=== PATIENT | female | born 1990 | race Caucasian/White ===

== ENCOUNTER 2017-07-26 18:03 | Inpatient (IN) ==
--- NOTE | 2017-07-26 21:31 | Emergency Department Note ---
Disposition Clinical Impression: Abdominal wall cellulitis Disposition: Admitted As Inpatient Condition: Good Referrals: Karen Perales, [employer] [Primary Care Provider] - Forms: ED Satisfaction Letter Time of Disposition: 23:36 Skin/Abscess/FB HPI Chief complaint: ED Skin/Abscess/Foreign Body Stated complaint: post OOMP surgery reaction Time Seen by Provider: 07/26/17 21:19 Source: patient Limitations: no limitations Nursing Notes Reviewed: Yes Vital Signs Reviewed: Yes HPI Narrative: Patient presents to the ED with redness to her abdominal wall after his surgery 5 days ago. She had a left partial oophorectomy performed in [facility] at [facility]. She called her doctor 3 days ago for dysuria and was placed on Keflex. At that time she noticed some redness and swelling in her anterior abdominal wall and was told to marked the area. She states that the area has spread despite continuing to take antibiotics for her UTI. 6 is also complaining of worsening abdominal pain that sharp in nature. Nothing really seems to make it better or worse and it is different than her expected postop pain. No fever, chills, chest pain or shortness of breath. No other rashes. No drainage from her incision sites. She does continue to have dysuria Home Medications Medication Instructions Recorded Confirmed Hycosamine 1 each PO DAILY 05/23/16 01/07/17 Fexofenadine/Pseudoephedrine 1 each PO DAILY 09/15/16 01/07/17 [Tricia-D 12 Hour Tablet] Montelukast Sodium [Singulair] 4 mg PO DAILY 09/15/16 01/07/17 ALPRAZolam [Xanax 0.25 MG Tablet] 0.25 mg PO BID 02/27/17 02/27/17 Previous Rx's Medication Instructions Recorded Cyclobenzaprine [Flexeril] 10 mg PO HS #3 tablet 09/15/16 Ibuprofen [Motrin] 600 mg PO Q6HR PRN #20 tab 01/07/17 Azithromycin [Azithromycin 6-Tab 250 mg PO PER PKG DI #6 tab 02/27/17 Pack] Guaifenesin/Dm/Pseudoephedrine 1 each PO BID #20 tablet 02/27/17 [Capmist Dm Tablet] predniSONE [PredniSONE] 0 mg PO DAILY #14 tablet 03/15/17 Allergies Allergy/AdvReac Type Severity Reaction Status Date / Time Penicillins AdvReac Rash Verified 02/27/17 12:13 Review of Systems: As reviewed in the HPI. All other systems reviewed are negative or normal. Past Medical History - Past Medical History Attestation: Yes The following information was validated with the patient. 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 The incisions overall to look clean, dry and intact but the erythema does cover them and is difficult to tell where it started from.). Absent: distention - Extremities Exam Extremities exam: Present: normal inspection, full ROM. Absent: tenderness, pedal edema - Back Exam Back exam: Present: other (Reports chronic back pain and "rods in there.") - Neurological Exam Neurological exam: Present: alert, oriented X3 - Psychiatric Psychiatric exam: Present: normal affect, normal mood - Skin Skin exam: Present: warm, dry, intact, normal color Course Course Narrative: Patient having a abdominal wall cellulitis after surgery. No extension into the abdomen or focal abscess. We will admit her. The hospital service. Spoke to the hospitalist, and he accepted her for admission. We had originally discussed placing her on Zosyn and vancomycin. However, she is allergic to penicillins, so we elected to place her on clindamycin and vancomycin. Especially since she is already failed outpatient therapy with a cephalosporin. Vital Signs Temperature 99.3 F 07/26/17 18:10 Pulse Rate 82 07/26/17 18:10 Respiratory Rate 18 07/26/17 18:10 Blood Pressure 136/84 07/26/17 18:10 O2 Sat by Pulse Oximetry 97 07/26/17 18:10 Temperature 99.3 F 07/26/17 18:10 Pulse Rate 82 07/26/17 18:10 Respiratory Rate 18 04/25/18 18:10 Blood Pressure 136/84 04/25/18 18:10 O2 Sat by Pulse Oximetry 97 07/26/17 18:10 Oxygen Delivery Oxygen Delivery Room Air Skin/Abscess/Foreign Body - Lab Data Result diagrams: 07/26/17 21:35 07/26/17 21:35 Lab Results 07/26/17 07/26/17 07/26/17 Range/Units 21:35 21:35 21:40 WBC 8.2 (4.3-11.1) K/mcL RBC 4.84 (3.82-4.97) M/mcL Hgb 13.5 (11.5-15.4) g/dL Hct 41.6 (35.3-44.9) % MCV 86.0 (83.0-100.0) fL MCH 27.9 L (28.0-33.3) pg MCHC 32.5 (31.6-35.5) g/dL RDW 12.7 (11.5-14.5) % Plt Count 221 (140-400) K/mcL MPV 11.7 (9.4-12.4) fL Immature Gran % 0.1 (0-4) % Seg Neutrophils % 64.9 % Lymphocytes % 26.1 % Monocytes % 7.0 % Eosinophils % 1.7 % Basophils % 0.2 % Neutrophils # 5.3 (1.6-8.9) K/mcL Lymphocytes # 2.1 (0.6-4.6) K/mcL Monocytes # 0.6 (0.0-1.3) K/mcL Eosinophils # 0.1 (0.0-0.6) K/mcL Basophils # 0.0 (0.0-0.2) K/mcL Sodium 138 (136-145) mEq/L Potassium 4.0 (3.5-5.1) mEq/L Chloride 103 (98-107) mEq/L Carbon Dioxide 31 H (23-29) mEq/L BUN 17 (6-20) mg/dL Creatinine 0.81 (0.60-1.20) mg/dL Est GFR ( Amer) > 60 (> 60) Est GFR (Non-Af Amer) > 60 (> 60) BUN/Creatinine Ratio 21 (6-26) Glucose 102 (70-105) mg/dL Calculated Osmolality 288 (280-300) Calcium 9.3 (8.6-10.3) mg/dL Urine Color Yellow (Yellow) Urine Clarity Clear (Clear) Urine pH 6.0 (5.0-8.0) pH Units Ur Specific [place] 1.024 (1.010-1.025) Urine Protein Negative (Neg-Trace) mg/dL Urine Glucose (UA) Normal (Normal) mg/dL Urine Ketones Negative (Negative) mg/dL Urine Blood Trace H (Negative) Urine Nitrite Negative (Negative) Urine Bilirubin Negative (Negative) Urine Urobilinogen Normal (Normal) mg/dL Ur Leukocyte Esterase Negative (Negative) Urine Microscopic RBC 0-3 (0-3) per hpf Urine Microscopic WBC 0-3 (0-3) per hpf Ur Squamous Epith Cells Many H (None-Few) per lpf Urine Bacteria Few (None-Few) per hpf Hyaline Casts None Seen (None-Few) per lpf Ur Culture Indicated? NO (NO) Urine Test (Negative) 07/26/17 Range/Units 21:40 WBC (4.3-11.1) K/mcL RBC (3.82-4.97) M/mcL Hgb (11.5-15.4) g/dL Hct (35.3-44.9) % MCV (83.0-100.0) fL MCH (28.0-33.3) pg MCHC (31.6-35.5) g/dL RDW (11.5-14.5) % Plt Count (140-400) K/mcL MPV (9.4-12.4) fL Immature Gran % (0-4) % Seg Neutrophils % % Lymphocytes % % Monocytes % % Eosinophils % % Basophils % % Neutrophils # (1.6-8.9) K/mcL Lymphocytes # (0.6-4.6) K/mcL Monocytes # (0.0-1.3) K/mcL Eosinophils # (0.0-0.6) K/mcL Basophils # (0.0-0.2) K/mcL Sodium (136-145) mEq/L Potassium (3.5-5.1) mEq/L Chloride (98-107) mEq/L Carbon Dioxide (23-29) mEq/L BUN (6-20) mg/dL Creatinine (0.60-1.20) mg/dL Est GFR ( Amer) (> 60) Est GFR (Non-Af Amer) (> 60) BUN/Creatinine Ratio (6-26) Glucose (70-105) mg/dL Calculated Osmolality (280-300) Calcium (8.6-10.3) mg/dL Urine Color (Yellow) Urine Clarity (Clear) Urine pH (5.0-8.0) pH Units Ur Specific [place] (1.010-1.025) Urine Protein (Neg-Trace) mg/dL Urine Glucose (UA) (Normal) mg/dL Urine Ketones (Negative) mg/dL Urine Blood (Negative) Urine Nitrite (Negative) Urine Bilirubin (Negative) Urine Urobilinogen (Normal) mg/dL Ur Leukocyte Esterase (Negative) Urine Microscopic RBC (0-3) per hpf Urine Microscopic WBC (0-3) per hpf Ur Squamous Epith Cells (None-Few) per lpf Urine Bacteria (None-Few) per hpf Hyaline Casts (None-Few) per lpf Ur Culture Indicated? (NO) Urine Test Negative (Negative)
[2017-07-26 21:47] LABS: Basophils % 0.2 %; Eosinophils # 0.1 K/mcL (0.0-0.6); Eosinophils % 1.7 %; Hematocrit 41.6 % (35.3-44.9); Hemoglobin 13.5 g/dL (11.5-15.4); Immature Granulocytes % 0.1 % (0-4); Lymphocytes # 2.1 K/mcL (0.6-4.6); Lymphocytes % 26.1 %; Mean Corpuscular HGB Conc 32.5 g/dL (31.6-35.5); Mean Corpuscular Hemoglobin 27.9 pg (28.0-33.3); Mean Platelet Volume 11.7 fL (9.4-12.4); Monocytes # 0.6 K/mcL (0.0-1.3); Neutrophils # 5.3 K/mcL (1.6-8.9); Platelet Count 221 K/mcL (140-400); Red Blood Count 4.84 M/mcL (3.82-4.97); Red Cell Distribution Width 12.7 % (11.5-14.5); Segmented Neutrophils % 64.9 %
[2017-07-26 21:50] LABS: Bilirubin,Urine Negative (Negative); Blood,Urine Trace (Negative); Clarity,Urine Clear (Clear); Color,Urine Yellow (Yellow); Glucose,Urine (UA) Normal (Normal); Ketones,Urine Negative (Negative); Leukocyte Esterase,Urine Negative (Negative); Nitrite,Urine Negative (Negative); Protein,Urine Negative (Neg-Trace); Specific Gravity,Urine 1.024 (1.010-1.025); Urobilinogen,Urine Normal (Normal)
[2017-07-26] MEDS ORDERED: Isovue-370 500 ML INFUS..BTL IV ONE (21:52)
[2017-07-26 22:05] LABS: Hyaline Casts,Urine None Seen per lpf (None-Few); RBC,Urine 0-3 per hpf (0-3); Squamous Epithelial Cell,Urine Many per lpf (None-Few); WBC,Urine 0-3 per hpf (0-3)
[2017-07-26 22:06] LABS: BUN/Creatinine Ratio 21 (6-26); Blood Urea Nitrogen 17 mg/dL (6-20); Calcium 9.3 mg/dL (8.6-10.3); Carbon Dioxide 31 mEq/L (23-29); Chloride 103 mEq/L (98-107); Glucose 102 mg/dL (70-105); Osmolality,Calculated 288 (280-300); Sodium 138 mEq/L (136-145); eGFR For African Americans > 60 (> 60); eGFR For Non-African Americans > 60 (> 60)
[2017-07-26 22:06] LABS: Bacteria,Urine Few per hpf (None-Few)
--- NOTE | 2017-07-26 22:16 | Emergency Department Note ---
START Narrative - START START: I examined this patient and my medical decision-making was reviewed with the Resident Physician. I agree with the documented findings, disposition and treatment plan as described except to the extent set forth below. 27-year-old female presents emergency room for lower abdominal discomfort and skin reaction. Patient had surgery done just a few days ago and had an oophorectomy. This was done for endometriosis. History of hysterectomy. She is noted some skin changes consistent with a cellulitis that seems to be worsening despite 2 days worth of Keflex. No white count. We will do a CT to make sure she has no developing intra-abdominal abscess. Afebrile.
[2017-07-26] MEDS ORDERED: Clindamycin 600 MG/50 ML 600 MG/50 ML IV.SOLN IVPB ONE (23:32)
--- NOTE | 2017-07-27 00:26 | Internal Med History&Physical ---
Date of Encounter: 07/27/17 Time of Encounter: 00:24 Internal Medicine - H&P: HPI Chief complaint: abd wall cellulitis Admitted From: Emergency Dept Plans for Post Hospital Care: Home History of present illness: Ms. Woodruff is a 27 year old female Patient with history of anxiety, obesity, patient had oophorectomy last week Lance yesterday she noticed abdominal wall redness then today became worse with redness and pain that she came into the emergency room for evaluation she does have abdominal wall cellulitis CT of the abdomen shows extensive cellulitis penetrate into the rectus with no abscess. White count is normal she be admitted for IV antibiotic. Past Med Surg Social Fam HX - Past Medical History Medical history: non-contributory Psychiatric history: anxiety - Social History Smoking Status: Never smoker Smokeless Tobacco Status: No Alcohol use: none Drug use: none Internal Medicine - H&P: Meds Hycosamine 1 each PO DAILY 05/23/16 [History] Cyclobenzaprine [Flexeril] 10 mg PO HS #3 tablet 09/15/16 [Rx] Fexofenadine/Pseudoephedrine [Tricia-D 12 Hour Tablet] 1 each PO DAILY [History] Montelukast Sodium [Singulair] 4 mg PO DAILY 09/15/16 [History] Ibuprofen [Motrin] 600 mg PO Q6HR PRN #20 tab 01/07/17 [Rx] ALPRAZolam [Xanax 0.25 MG Tablet] 0.25 mg PO BID 02/27/17 [History] Azithromycin [Azithromycin 6-Tab Pack] 250 mg PO PER PKG DI #6 tab 02/27/17 [Rx] Guaifenesin/Dm/Pseudoephedrine [Capmist Dm Tablet] 1 each PO BID #20 tablet [Rx] predniSONE [PredniSONE] 0 mg PO DAILY #14 tablet 03/15/17 [Rx] 3 Allergy/AdvReac Type Severity Reaction Status Date / Time Penicillins AdvReac Rash Verified 02/27/17 12:13 All Systems PM: A 10-system review of systems was performed and is negative for pertinent findings except as documented above in the HPI. - Constitutional Vitals: Temp Pulse Resp BP Pulse Ox 99.3 F 82 18 136/84 97 07/26/17 18:10 07/26/17 18:10 07/26/17 18:10 07/26/17 18:10 07/26/17 18:10 - Head Head exam: Present: atraumatic, normocephalic - Eye Eye exam: Present: PERRL, conjuntiva pink, sclera anicteric Pupils: Present: PERRL - Respiratory Respiratory exam: Present: CTAB. Absent: accessory muscle use, rales, rhonchi, wheezes - Cardiovascular Cardiovascular exam: Present: RRR, +S1, +S2. Absent: diastolic murmur, gallop, rubs, systolic murmur - GI/Abdominal GI/Abdominal exam: Present: tenderness Internal Med - H&P Results - Labs CBC & Chem 7: 07/26/17 21:35 07/26/17 21:35 Labs: Short CBC 07/26/17 Range/Units 21:35 WBC 8.2 (4.3-11.1) K/mcL Hgb 13.5 (11.5-15.4) g/dL Hct 41.6 (35.3-44.9) % Plt Count 221 (140-400) K/mcL Neutrophils # 5.3 (1.6-8.9) K/mcL BMP 07/26/17 21:35 Sodium 138 Potassium 4.0 Chloride 103 Carbon Dioxide 31 H BUN 17 Creatinine 0.81 Glucose 102 Calcium 9.3 Urine 07/26/17 Range/Units 21:40 Urine Color Yellow (Yellow) Urine Clarity Clear (Clear) Urine pH 6.0 (5.0-8.0) pH Units Ur Specific [place] 1.024 (1.010-1.025) Urine Protein Negative (Neg-Trace) mg/dL Urine Glucose (UA) Normal (Normal) mg/dL - Impressions ITS Impressions Abdomen/Pelvis CT 07/26/17 21:52 IMPRESSION: Skin thickening and underlying inflammatory changes of the anterior abdominal wall, extending to the abdominal rectus muscle, which has a small focal defect. Small amount of surrounding punctate soft tissue gas. Findings could represent cellulitis versus sequela of any recent surgery. No formed fluid collections to suggest abscess. Some of the inflammatory changes extend to the outer wall of a short focal segment of the sigmoid colon. However, there is no significant colonic wall thickening or free intraperitoneal air to suggest colonic injury. Status post cholecystectomy. D/ / 07/26/2017 23:15:21 Corey Rivera MD / bcarter Interpreting Provider: Corey Rivera MD - Assessment and plan (1) Obesity Current Visit: Yes Status: Chronic Qualifiers: Obesity type: due to excess calories Obesity classification: unspecified obesity classification Serious obesity comorbidity presence: unspecified whether serious comorbidity present Qualified Code(s): E66.09 - Other obesity due to excess calories (2) Anxiety Current Visit: Yes Status: Chronic (3) Abdominal wall cellulitis Current Visit: Yes Status: Acute Assessment and plan: Abdominal wall cellulitis no abscess started on Zosyn - Time Spent With Patient Total time spent is greater than 50% in coordination of care (as documented) at patient's floor/unit and/or counseling patient:
[2017-07-27] MEDS ORDERED: Naloxone 0.4 MG/ML INJ IVP PRN (00:28)
[2017-07-27] MEDS ORDERED: Acetaminophen 325 MG TABLET PO PRN (00:28)
[2017-07-27] MEDS ORDERED: Ibuprofen 600 MG TABLET PO PRN (00:30)
[2017-07-27] MEDS: traMADol 50 MG TABLET PO PRN ×3 (01:20→21:33)
[2017-07-27 02:32] LABS: BUN/Creatinine Ratio 22 (6-26); Blood Urea Nitrogen 15 mg/dL (6-20); Carbon Dioxide 26 mEq/L (23-29); Chloride 104 mEq/L (98-107); Glucose 104 mg/dL (70-105); Magnesium 2.1 mg/dL (1.6-2.6); Osmolality,Calculated 283 (280-300); Potassium 3.9 mEq/L (3.5-5.1); Sodium 136 mEq/L (136-145); eGFR For African Americans > 60 (> 60); eGFR For Non-African Americans > 60 (> 60)
[2017-07-27] MEDS: *HR* Enoxaparin 40 MG/0.4 ML SYRINGE SQ SCH (05:56)
[2017-07-27] MEDS: Piperacillin/Tazobactam 3.375 GM in 0.9 % Sodium Chloride Mini Bag 100 ML IVPB SCH ×3 (08:08→23:20)
[2017-07-27] MEDS ORDERED: Loratadine/Pseudophed (12 HR) 1 EACH TABLET PO SCH (09:00)
[2017-07-27] MEDS ORDERED: ALPRAZolam 0.25 MG TABLET PO SCH (09:00)
[2017-07-27] MEDS ORDERED: MONTELUKAST SODIUM 4 MG PO SCH (09:00)
--- NOTE | 2017-07-27 09:16 | Internal Med Progress Note ---
Date of Encounter: 07/27/17 Time of Encounter: 09:00 - Assessment and plan (1) Abdominal wall cellulitis Current Visit: Yes Status: Acute Assessment and plan: Cellulitis of the abdomen that abdominal CT imaging demonstrates extension into the abdominal rectus muscle. Afebrile, WBC 8.2 -continue Zosyn day 2 -blood cultures pending (2) History of PCOS Current Visit: Yes Status: Acute Assessment and plan: History of known PCOS with hysterectomy years ago. s/p oophorectomy last Monday , since then she has had abdominal pain. Taking estradiol at home. -Continue estradiol (3) GERD (gastroesophageal reflux disease) Current Visit: Yes Status: Acute Assessment and plan: History of Gerd taking ranitidine -continue Pepcid (4) Obesity Current Visit: Yes Status: Chronic Qualifiers: Obesity type: due to excess calories Obesity classification: unspecified obesity classification Serious obesity comorbidity presence: unspecified whether serious comorbidity present Qualified Code(s): E66.09 - Other obesity due to excess calories (5) Anxiety Current Visit: Yes Status: Chronic Assessment and plan: History of known anxiety taking Paxil and Xanax -continue home medications (6) DVT prophylaxis Current Visit: Yes Status: Acute Assessment and plan: Lovenox sq - Time Spent With Patient Total time spent is greater than 50% in coordination of care (as documented) at patient's floor/unit and/or counseling patient: - Subjective Interval history: 27F PMH anxiety and PCOS who came to the ED complaining of abdominal pain and redness and swelling of abdomen. Last Monday she had an oophorectomy. Abdominal CT demonstrated cellulitis of the anterior abdominal wall extending into abdominal rectus muscle. No abscess. Upon my examination she is alert and oriented times 3. She reports that abdominal pain has improved some from yesterday. Tramadol is helping the pain. Admits nausea and sweating overnight. Denies fever, chills, vomiting, nausea. - Constitutional Vitals: Temp Pulse Resp BP Pulse Ox 98.3 F 70 16 98/63 96 07/27/17 06:51 07/27/17 06:51 07/27/17 06:51 07/27/17 06:51 07/27/17 06:51 Exam: Gen.: Vitals noted. No acute distress. AAOx3 HEENT: oropharynx clear, Normocephalic, atraumatic Cardiac: RRR, no murmur, +S1/S2 Pulmonary: CTA bilaterally, no wheezes, rales or rhonchi, equal chest expansion Abdomen: soft, minimal hypogastric tender, Bowel sounds noted, no guarding skin: erythema inferior to the umbilicus, warmth MSK: no joint swelling noted Extremities: no BLE edema, nontender calf, no cyanosis or clubbing Neuro: A&Ox3, moves all extremities, no focal deficits Psych: Appropriate mood and behavior Internal Medicine: Result - Labs CBC & Chem 7: 07/26/17 21:35 07/27/17 01:41 Labs: BMP 07/27/17 01:41 Sodium 136 Potassium 3.9 Chloride 104 Carbon Dioxide 26 BUN 15 Creatinine 0.68 Glucose 104 Calcium 9.0 Consult Discharge Plan - Plan Referrals: Karen Perales, CHE [Primary Care Provider] - 08/07/17 11:00 am
[2017-07-27] MEDS ORDERED: ALPRAZolam 0.5 MG TABLET PO PRN (14:01)
--- NOTE | 2017-07-27 14:35 | Event Note ---
<Samantha Mensah - Last Filed: 07/27/17 14:22> Date of Encounter: 07/27/17 Time of Encounter: 09:15 27F PMH anxiety and PCOS who came to the ED complaining of abdominal pain and redness and swelling of abdomen. Last Monday she had an oophorectomy. Abdominal CT demonstrated cellulitis of the anterior abdominal wall extending into abdominal rectus muscle. No abscess. Upon my examination she is alert and oriented times 3. She reports that abdominal pain has improved some from yesterday. Tramadol is helping the pain. Admits nausea and sweating overnight. Denies fever, chills, vomiting, nausea. Gen.: Vitals noted. No acute distress. AAOx3 HEENT: oropharynx clear, Normocephalic, atraumatic Cardiac: RRR, no murmur, +S1/S2 Pulmonary: CTA bilaterally, no wheezes, rales or rhonchi, equal chest expansion Abdomen: soft, minimal hypogastric tender, Bowel sounds noted, no guarding skin: erythema inferior to the umbilicus, warmth MSK: no joint swelling noted Extremities: no BLE edema, nontender calf, no cyanosis or clubbing Neuro: A&Ox3, moves all extremities, no focal deficits Psych: Appropriate mood and behavior A/P: Abdominal wall cellulitis Cellulitis of the abdomen that abdominal CT imaging demonstrates extension into the abdominal rectus muscle. She is s/p oophorectomy last Monday for which her surgeon advised her to be aware if she start to develop in infection due to the surgeon having to burn part of the lining in the abdomen when performing the oophorectomy. She has had abdominal pain since the surgery that has been sharp centralized, non-radiating. Yesterday she noticed the redness and swelling on her abdomen. Afebrile, WBC 8.2 Patient is clinically improving. Markings outlying the extension of the cellulitis on the abdomen demonstrate it is decreasing. Will continue Zosyn and will de-escalate when able. -continue Zosyn day 1 -toradol and tramadol PRN pain -blood cultures pending -order CRP History of PCOS History of known PCOS with hysterectomy years ago. s/p oophorectomy last Monday , since then she has had abdominal pain. Taking estradiol at home. -Continue estradiol GERD History of Gerd taking ranitidine -continue Pepcid Obesity Anxiety History of known anxiety taking Paxil and Xanax -continue home medications DVT prophylaxis Lovenox sq <Milton Kirby - Last Filed: 07/27/17 18:16> Date of Encounter: 07/27/17 I performed a history and physical examination of the patient and discussed his/ her management with the resident. I reviewed the residents note and agree with the documented findings and plan of care. Post op s/p oophrectomy about one week ago done at an outside facility. Patient having cellulitis that has extended to abdomen without any abscess. Today she states she is still sore. Pain about same but notes that erythema has improved. Continue Zosyn and add Vancomycin Consult Surgery in AM for evaluation given that there is inflammation in abdominal wall.
[2017-07-27] MEDS ORDERED: Vancomycin 1,750 MG in 0.9 % Sodium Chloride 250 ML IVPB SCH (18:00)
[2017-07-27] MEDS: Famotidine 20 MG TABLET PO SCH (21:33)
[2017-07-28 04:44] LABS: Hematocrit 38.4 % (35.3-44.9); Hemoglobin 12.4 g/dL (11.5-15.4); Mean Corpuscular HGB Conc 32.3 g/dL (31.6-35.5); Mean Corpuscular Hemoglobin 27.7 pg (28.0-33.3); Mean Corpuscular Volume 85.9 fL (83.0-100.0); Mean Platelet Volume 11.4 fL (9.4-12.4); Platelet Count 216 K/mcL (140-400); Red Blood Count 4.47 M/mcL (3.82-4.97); Red Cell Distribution Width 12.7 % (11.5-14.5)
[2017-07-28] MEDS: *HR* Enoxaparin 40 MG/0.4 ML SYRINGE SQ SCH (05:37)
[2017-07-28] MEDS: Piperacillin/Tazobactam 3.375 GM in 0.9 % Sodium Chloride Mini Bag 100 ML IVPB SCH ×2 (07:50→14:54)
[2017-07-28] MEDS: Loratadine 10 MG TABLET PO SCH (07:50)
[2017-07-28] MEDS: Famotidine 20 MG TABLET PO SCH ×2 (07:50→19:52)
--- NOTE | 2017-07-28 08:53 | Internal Med Progress Note ---
Date of Encounter: 07/28/17 Time of Encounter: 08:50 - Assessment and plan (1) Abdominal wall cellulitis Current Visit: Yes Status: Acute Assessment and plan: Cellulitis of the abdomen that abdominal CT imaging demonstrates extension into the abdominal rectus muscle. She is s/p oophorectomy last Monday for which her surgeon advised her to be aware if she start to develop in infection due to the surgeon having to burn part of the lining in the abdomen when performing the oophorectomy. She has had abdominal pain since the surgery that has been sharp centralized, non-radiating. Yesterday she noticed the redness and swelling on her abdomen. Afebrile, WBC WNL CRP 36 blood cultures negative Patient is clinically improving. Markings outlying the extension of the cellulitis and warmth is decreasing. - Zosyn day 2 -vancomycin day 1 -surgery and infectious disease consulted for recommendations in terms of antibiotics and duration due to penetrance of cellulitis into the abdominal rectus muscle -toradol and tramadol PRN pain -recheck CRP tomorrow (2) History of PCOS Current Visit: Yes Status: Acute Assessment and plan: History of known PCOS with hysterectomy years ago. s/p oophorectomy last Monday , since then she has had abdominal pain. Taking estradiol at home. -Continue estradiol (3) GERD (gastroesophageal reflux disease) Current Visit: Yes Status: Acute Assessment and plan: History of Gerd taking ranitidine -continue Pepcid Qualifiers: Qualified Code(s): K21.9 - Gastro-esophageal reflux disease without esophagitis (4) Obesity Current Visit: Yes Status: Chronic Qualifiers: Obesity type: due to excess calories Obesity classification: unspecified obesity classification Serious obesity comorbidity presence: unspecified whether serious comorbidity present Qualified Code(s): E66.09 - Other obesity due to excess calories (5) Anxiety Current Visit: Yes Status: Chronic Assessment and plan: History of known anxiety taking Paxil and Xanax -continue home medications (6) DVT prophylaxis Current Visit: Yes Status: Acute Assessment and plan: Lovenox sq - Time Spent With Patient Total time spent is greater than 50% in coordination of care (as documented) at patient's floor/unit and/or counseling patient: - Subjective Interval history: 27F PMH anxiety and PCOS who came to the ED complaining of abdominal pain and redness and swelling of abdomen. Last Lance she had an oophorectomy. Abdominal CT demonstrated cellulitis of the anterior abdominal wall extending into abdominal rectus muscle. No abscess. Upon my examination she is alert and oriented times 3. She reports that abdominal pain is improving, the redness and swelling is improving. Denies fever, chills, vomiting, nausea. - Constitutional Vitals: Temp Pulse Resp BP Pulse Ox 97.8 F 78 18 118/78 97 07/28/17 08:16 07/28/17 08:16 07/28/17 08:16 07/28/17 08:16 07/28/17 08:16 Exam: Gen.: Vitals noted. No acute distress. AAOx3 HEENT: oropharynx clear, Normocephalic, atraumatic Cardiac: RRR, no murmur, +S1/S2 Pulmonary: CTA bilaterally, no wheezes, rales or rhonchi, equal chest expansion Abdomen: soft, minimal tender epigastric, Bowel sounds noted, no guarding skin: erythema on abdomen is reducing MSK: ROM intact, no joint swelling noted Extremities: no BLE edema, nontender calf, no cyanosis or clubbing Neuro: A&Ox3, moves all extremities, no focal deficits Psych: Appropriate mood and behavior Internal Medicine: Result - Labs CBC & Chem 7: 07/28/17 04:03 07/27/17 01:41 Labs: Short CBC 07/28/17 Range/Units 04:03 WBC 7.4 (4.3-11.1) K/mcL Hgb 12.4 (11.5-15.4) g/dL Hct 38.4 (35.3-44.9) % Plt Count 216 (140-400) K/mcL Consult Discharge Plan - Plan Referrals: Karen Perales CNP [Primary Care Provider] - 08/07/17 11:00 am
[2017-07-28] MEDS ORDERED: Aminoglycoside Consult 1 EACH MC ONE (09:37)
--- NOTE | 2017-07-28 13:33 | General Surgery Consult Note ---
<BraydenMarbella Ambar - Last Filed: 07/28/17 14:05> Date of Encounter: 07/28/17 Time of Encounter: 13:33 Assessment and Plan (1) Abdominal wall cellulitis Current Visit: Yes Status: Acute Patient's clinical exam does not reveal concerns for an abscess. There is no surgical intervention recommended at this time. IV antibiotics and/or PO antibiotics per primary team. Patient should follow-up with her DEPUTY HARBORMASTER within one week. Pt is advised that if anything changes in her course i.e. she develops symptoms of an abscess she should return for further evaluation. Surgery will sign off at this time. Thank you for allowing us to participate in Ms. Woodruff's care. Please call with any further questions or concerns. (2) History of PCOS Current Visit: Yes Status: Acute (3) Obesity Current Visit: Yes Status: Chronic Qualifiers: Obesity type: due to excess calories Obesity classification: unspecified obesity classification Serious obesity comorbidity presence: unspecified whether serious comorbidity present Qualified Code(s): E66.09 - Other obesity due to excess calories History of Present Illness Consult date: 07/28/17 (Dr. Pranav Sanchez) Reason for consult: other (cellulitis vs possible abscess) Requesting physician: Milton Kirby History of present illness: Melissa is a 27-year-old female with a past medical history of morbid obesity, PCOS, anxiety, GERD, and a surgical history of cholecystectomy, hysterectomy, and most recently bilateral oopherectomy and salpingectomy one week ago for frequent ovarian cysts. Per patient report "my ovary had adhered to my abdominal wall and they had to cut it off." She reports that aprox 24- hours after surgery she developed a "large red area," for which she was told to take a benadryl and if it did not get better she should go to the hospital. She reports she had her surgery at [facility], but that [place] was closer so she came here. She states that since she has been in the hospital the area has significantly improved. Her hospital course thus far has included lab work with notably normal white blood cell count and elevated C-reactive protein, a CT scan of the abdomen and pelvis with IV and no oral contrast which revealed skin thickening and inflammatory changes in the anterior abdominal wall extending to the abdominal rectus muscle which had a small focal defect there was no formed fluid collections or gas to suggest abscess. She denies fever, chills, headache, dizziness, syncope, near syncope, nausea, vomiting, diarrhea, constipation, abdominal discomfort that has increased, or urinary signs or symptoms. She endorses redness in the left lower quadrant that has improved since being on IV antibiotics. She denies increasing discomfort at this time. Surgery has been asked to see this patient for concerns for a possible abscess. Past Med Surg Social Fam HX - Past Medical History Source: patient Medical history: GERD, other (anxiety, PCOS, ) Psychiatric history: anxiety - Past Surgical History Surgical History: , cholecystectomy, herniorrhaphy, hysterectomy - Social History Smoking Status: Never smoker Smokeless Tobacco Status: No Alcohol use: none Drug use: none - Family History Father Hx Family Cardiac Disorders: Yes (Stroke) Hx Family Endocrine Disorder: Yes (DM) Hx Family HEENT Disorders: Yes (Clotting disorder) Mother Hx Family Endocrine Disorder: Yes (DM) Medications and Allergies ALPRAZolam [Xanax 0.5 MG Tablet] 0.5 mg PO DAILY PRN 07/27/17 [History] Estradiol [Estradiol] 2 mg PO DAILY 07/27/17 [History] Fexofenadine HCl 180 mg PO DAILY 07/27/17 [History] Fluticasone Propionate Nasal [Flonase] 1 spr NS DAILY 07/27/17 [History] Ibuprofen [Ibuprofen] 800 mg PO TID PRN 07/27/17 [History] Ondansetron ODT [Zofran ODT] 4 mg PO Q8H PRN 07/27/17 [History] Paroxetine [Paxil] 20 mg PO DAILY 07/27/17 [History] Ranitidine HCl [Acid Center Machine Set Up Operator] 150 mg PO BID 07/27/17 [History] cephALEXin [Keflex] 500 mg PO BID 07/27/17 [History] 3 Allergy/AdvReac Type Severity Reaction Status Date / Time Penicillins AdvReac Rash Verified 07/27/17 09:05 Review of Systems All systems PM: reviewed and no additional remarkable complaints except as stated All systems PM: The remainder of the systems were reviewed and are negative General Surgery Exam Initial Vital Signs Temp Pulse Resp BP Pulse Ox 99.3 F 82 18 136/84 97 07/26/17 18:10 07/26/17 18:10 07/26/17 18:10 07/26/17 18:10 07/26/17 18:10 VITAL SIGNS: Reviewed. See [facility] GENERAL: In no apparent distress. HEENT: Normocephalic, atraumatic, pupils are equal and reactive, extraocular motions intact, oropharynx is pink and moist, there is no neck adenopathy or JVD noted. CHEST/RESPIRATORY: The thorax is free from signs of trauma. Lung sounds: clear to auscultation, normal respiratory effort CARDIAC: Regular rate and rhythm. Normal S1 and S2, without murmurs, gallops, or rubs. VASCULAR: No Edema. 2+ peripheral pulses. ABDOMEN: soft, nontender, obese, surgical incisions are clean, dry, and intact. There is a marked outlined area of redness, that has decreased within the markings, of erythema consistent with cellulitis. There are no areas of fluctuance noted. She is nontender to palpation of this area. There is one small firm area just below the umbilicus that would be consistent with likely surgical tract that is again free from signs of infection. MUSCULOSKELETAL: Good range of motion of all major joints. Extremities without clubbing, cyanosis or edema. NEUROLOGIC EXAM: Alert and oriented x 3. Speech normal. Follows commands. PSYCHIATRIC: Mood normal. SKIN: No rash or lesions. Other than described in abdominal exam. Exam Initial Vital Signs Temp Pulse Resp BP Pulse Ox 99.3 F 82 18 136/84 97 07/26/17 18:10 07/26/17 18:10 07/26/17 18:10 07/26/17 18:10 07/26/17 18:10 Results - Labs 07/28/17 04:03 07/27/17 01:41 Abnormal lab results MCH 27.7 pg (28.0-33.3) L 07/28/17 04:03 C-Reactive Protein 36 mg/L (Less than 10) H 07/27/17 11:33 Urine Blood Trace (Negative) H 07/26/17 21:40 Ur Squamous Epith Cells Many per lpf (None-Few) H 07/26/17 21:40 All other labs normal. - Imaging CT scan - abdomen: report reviewed CT scan - pelvis: report reviewed Consult Discharge Plan - Plan Referrals: Karen Perales, ANNUAL GREENHOUSE MANAGER [Primary Care Provider] - 08/07/17 11:00 am <Pranav Sanchez - Last Filed: 07/28/17 18:49> Date of Encounter: 07/28/17 Review of Systems All systems PM: The remainder of the systems were reviewed and are negative General Surgery Exam Initial Vital Signs Temp Pulse Resp BP Pulse Ox 99.3 F 82 18 136/84 97 07/26/17 18:10 07/26/17 18:10 07/26/17 18:10 07/26/17 18:10 07/26/17 18:10 Exam Initial Vital Signs Temp Pulse Resp BP Pulse Ox 99.3 F 82 18 136/84 97 07/26/17 18:10 07/26/17 18:10 07/26/17 18:10 07/26/17 18:10 07/26/17 18:10 Results - Labs 07/28/17 04:03 07/27/17 01:41 Abnormal lab results MCH 27.7 pg (28.0-33.3) L 07/28/17 04:03 C-Reactive Protein 36 mg/L (Less than 10) H 07/27/17 11:33 Urine Blood Trace (Negative) H 07/26/17 21:40 Ur Squamous Epith Cells Many per lpf (None-Few) H 07/26/17 21:40 All other labs normal. - Attending Attestation I have personally performed a face to face evaluation on this patient. I have reviewed and agree with the care plan. History and Exam by me shows: The patient is seen and evaluated. I initially discussed her care with the clinical nurse practitioner and followed up with my own physical examination and review of her history. Her abdominal wall erythema is markedly improved. We will continue current treatment plan. Pranav Sanchez MD FACS
[2017-07-28] MEDS: traMADol 50 MG TABLET PO PRN (14:49)
--- NOTE | 2017-07-28 14:53 | Infectious Disease Consult ---
Date of Encounter: 07/28/17 Time of Encounter: 14:48 Assessment and Plan (1) Abdominal wall cellulitis Status: Acute Assessment and plan: Causative organism unclear. Location: Middle lower and left lower abdomen. Etiology unclear, but could be related to the patient's recent surgery, although the surgical sites do not appear affected. Failed outpatient oral antibiotic therapy. CT of the abdomen and pelvis showed skin thickening and underlying inflammatory changes of the anterior abdominal wall, extending to the abdominal rectus muscle , which has a small focal defect and a small amount of surrounding punctate soft tissue gas. Per radiology, findings could represent cellulitis vs. sequelae of any recent surgery. No formed fluid collections to suggest abscess. Clinically, the patient appears to have improved. She has no SIRS criteria. Blood cultures drawn 07/27/17 are NGTD x 2 sets. Continue Vancomycin IV. Pharmacy to dose. Goal trough ~15. Continue Zosyn 3.375 grams IV Q8H. The patient has an allergy to PCN listed, but since she has tolerated Zosyn without a problem, highly unlikely she has a true PCN allergy. Duration of treatment depends on the clinical picture, but likely a total of 10 days. Can switch to PO Bactrim and Levaquin to complete the course of treatment. Advised the patient to follow up with her PCP next week for evaluation and if she starts to have worsening symptoms, to call our office and we can see her in the clinic. Monitor renal function and for drug toxicity and dose adjust antibiotics. Wound care per the patient's KNOT BUMPER recommendations. (2) Obesity Status: Chronic Qualifiers: Obesity type: due to excess calories Obesity classification: unspecified obesity classification Serious obesity comorbidity presence: unspecified whether serious comorbidity present Qualified Code(s): E66.09 - Other obesity due to excess calories (3) History of PCOS Status: Acute (4) GERD (gastroesophageal reflux disease) Status: Acute Qualifiers: Qualified Code(s): K21.9 - Gastro-esophageal reflux disease without esophagitis Infectious Disease HPI - Data of Consult Patient: new to practice Consult date: 07/28/17 Requesting Physician: Azar Silva MD Primary Care Provider: Karen Perales CNP - Consult Narrative Reason for consult: Abdominal wall cellulitis History of present illness: Ms. Woodruff is a 27 year old female has medical history of endometriosis, anxiety, previous history of partial hysterectomy with recent history of bilateral nephrectomy on July 21 at [facility]. The patient was omitted to the hospital July 26 for abdominal wall cellulitis. We are consult July 28 for further recommendations for abdominal wall cellulitis. , The patient is a 27-year-old female with past medical history as stated above. The patient underwent a bilateral nephrectomy back on July 26 due to endometriosis. She states she did well postoperatively and was at home until Monday when she began to develop dysuria and foul-smelling urine. She states she called her KNOT BUMPER in the corner and a prescription for Keflex which she started on July 24. She states that she took the medication for 2 days and on July 26 she noticed that there was redness and warmth and tenderness to area overlying her lower abdomen. She presented to the ER for evaluation. Upon arrival, the patient was afebrile hemodynamically stable. Laboratory studies revealed a normal white blood cell count. Urinalysis was negative for pyuria. She had a CT of the abdomen and pelvis that showed skin thickening an underlying inflammatory changes of the anterior abdominal wall, extending to the abdominal rectus muscle, which has a small focal defect. There is also noted to be a small amount of surrounding punctate soft tissue gas. These findings could represent cellulitis versus sequelae of any recent surgery. There is no formed fluid collections to suggest an abscess. Due to the patient' s progression of symptoms despite being on flex, the patient was admitted to the hospital for IV antibiotics. She was started on IV clindamycin and IV vancomycin and admitted to the hospital for further evaluation. Since admission, the patient has remained afebrile hemodynamically stable. Blood cultures obtained on July 27 are no growth to date 2 sets. Her antibiotic regimen was changed to vancomycin and Zosyn. We have been asked to evaluate and make further recommendations. Today, the patient endorses a history as stated above. She states that her OB/ ENVELOPE FOLDING MACHINE ADJUSTER told her that he had burned her ovary off the abdominal wall due to adhesions. She denies any fevers or chills or rigors. She denies any headache or neck pain. She denies weakness or dizziness or malaise. She denies any congestion, earache, or sore throat. She denies any chest pain, shortness of breath, or cough. She denies any nausea or vomiting or diarrhea. She does report some mild postoperative abdominal pain, worse with movement. She states that the area of erythema was warm to touch and tender. She states her surgical sites are well healed without drainage or surrounding erythema. He denies any appetite changes. She states her urinary complaints have resolved. She denies any vaginal bleeding or discharge. She denies any oral thrush or additional skin lesions. The patient lives at home with her and 2 children. She does not work outside the home. She denies any alcohol, tobacco, or illicit drug use. She denies any travel outside the [facility]. She does have 1 dog at home, but denies any bites or scratches to the area affected. CC: Azar Silva MD Past Med Surg Social Fam HX - Past Medical History Attestation: Yes The following information was validated with the patient. Source: patient, old records reviewed, nursing notes reviewed Medical history: GERD, other (anxiety, PCOS, ) Psychiatric history: anxiety - Past Surgical History Surgical History: , cholecystectomy, herniorrhaphy, hysterectomy - Social History Smoking Status: Never smoker Smokeless Tobacco Status: No Alcohol use: none Drug use: none Occupational status: unemployed Current living situation: Home, With Family Activity Level: Independent ambulation Recent Out of Country Travel Within the Last 8 Weeks: No Exposure or Possible Exposure to Illness During Travel: No - Family History Father Hx Family Cardiac Disorders: Yes (Stroke) Hx Family Endocrine Disorder: Yes (DM) Hx Family HEENT Disorders: Yes (Clotting disorder) Mother Hx Family Endocrine Disorder: Yes (DM) Infectious Disease-CN:Meds ALPRAZolam [Xanax 0.5 MG Tablet] 0.5 mg PO DAILY PRN 07/27/17 [History] Estradiol [Estradiol] 2 mg PO DAILY 07/27/17 [History] Fexofenadine HCl 180 mg PO DAILY 07/27/17 [History] Fluticasone Propionate Nasal [Flonase] 1 spr NS DAILY 07/27/17 [History] Ibuprofen [Ibuprofen] 800 mg PO TID PRN 07/27/17 [History] Ondansetron ODT [Zofran ODT] 4 mg PO Q8H PRN 07/27/17 [History] Paroxetine [Paxil] 20 mg PO DAILY 07/27/17 [History] Ranitidine HCl [Acid Salt Washer] 150 mg PO BID 07/27/17 [History] cephALEXin [Keflex] 500 mg PO BID 07/27/17 [History] 3 Allergy/AdvReac Type Severity Reaction Status Date / Time Penicillins AdvReac Rash Verified 07/27/17 09:05 All systems: reviewed and no additional remarkable complaints except as stated Exam - Constitutional Vitals: Temp Pulse Resp BP Pulse Ox 97.8 F 78 18 118/78 97 07/28/17 08:16 07/28/17 08:16 07/28/17 08:16 07/28/17 08:16 07/28/17 08:16 General appearance: cooperative, morbidly obese, no acute distress - Head Head exam: Present: atraumatic, normal inspection, normocephalic - Eye Eye exam: Present: EOMI, normal appearance, PERRL Pupils: Present: normal accommodation - ENT ENT exam: Present: mucous membranes moist - Neck Neck exam: Present: normal inspection - Respiratory Respiratory exam: Present: CTAB. Absent: rales, respiratory distress, rhonchi, wheezes - Cardiovascular Cardiovascular exam: Present: RRR, +S1, +S2 - GI/Abdominal GI/Abdominal exam: Present: distended (obese), normal bowel sounds, soft, tenderness (LLQ, RLQ) Additional comments: Mild erythema noted to the middle lower and left lower abdomen, just superior to the umbilicus. No warmth. Area is receded based on previous skin markings. Mild tenderness noted on exam. Umbilical, right lower and left lower abdomen stab incisions with wound edges well-approximated and no drainage or erythema. - Extremities Exam Extremities exam: Present: normal inspection. Absent: joint swelling, pedal edema, tenderness - Neurological Exam Neurological exam: Present: alert, oriented X3, no focal deficits - Psychiatric Psychiatric exam: Present: normal affect, normal mood - Skin Skin exam: Present: dry, intact, normal color, warm Infectious Disease CN: Results - Labs CBC & Chem 7: 07/28/17 04:03 07/27/17 01:41 Cultures: Cultures 07/27/17 01:41 Blood Culture - Preliminary Peripheral Venipuncture No growth. 07/27/17 01:41 Blood Culture - Preliminary Peripheral Venipuncture No growth. Consult Discharge Plan - Plan Referrals: Karen Perales CNP [Primary Care Provider] - 08/07/17 11:00 am
[2017-07-29] MEDS: Piperacillin/Tazobactam 3.375 GM in 0.9 % Sodium Chloride Mini Bag 100 ML IVPB SCH (00:50)
[2017-07-29] MEDS: traMADol 50 MG TABLET PO PRN ×2 (00:53→08:35)
[2017-07-29] MEDS: *HR* Enoxaparin 40 MG/0.4 ML SYRINGE SQ SCH (05:27)
[2017-07-29 07:03] VITALS: BP 126/77
--- NOTE | 2017-07-29 08:02 | Discharge Summary ---
<Samantha Mensah - Last Filed: 07/29/17 07:58> Orders not resulted at time of discharge: Pending orders 07/30/17 04:00 CRP [C-Reactive Protein] AM 0400 Date of Encounter: 07/29/17 Time of Encounter: 07:58 - Discharge Diagnosis (1) Abdominal wall cellulitis Priority: Primary Status: Acute (2) History of PCOS Priority: Secondary Status: Acute (3) GERD (gastroesophageal reflux disease) Priority: Secondary Status: Acute Qualifiers: Qualified Code(s): K21.9 - Gastro-esophageal reflux disease without esophagitis (4) Obesity Priority: Secondary Status: Chronic Qualifiers: Obesity type: due to excess calories Obesity classification: unspecified obesity classification Serious obesity comorbidity presence: unspecified whether serious comorbidity present Qualified Code(s): E66.09 - Other obesity due to excess calories (5) Anxiety Priority: Secondary Status: Chronic (6) DVT prophylaxis Priority: Secondary Status: Acute Hospital course: Ms. Woodruff is a 27 year old female with PMH anxiety and PCOS who came to the ED complaining of abdominal pain and redness and swelling of abdomen. The patient had oophorectomy last week Lance and yesterday she noticed abdominal wall redness then today became worse with redness and pain that she came into the emergency room for evaluation. She does have abdominal wall cellulitis CT of the abdomen shows extensive cellulitis that penetrates the abdominal rectus muscle with no abscess. Her white blood cell count was normal. She was started on IV antibiotics of Zosyn. Infectious diseases consulted and added vancomycin. Surgery was consulted since this cellulitis with extension into the abdominal rectus muscle was post surgical procedure. Surgery evaluated the patient and did not believe that she need any surgical intervention since there was no abscess on CT and since she was continuing to improve. Blood cultures were negative. During her admission she continue to improve and remain afebrile , white blood cell count within normal limits. The cellulitis on the lower abdomen continue to improve in the redness, erythema, swelling, pain. Infectious disease recommended that she be discharged on Bactrim and Levaquin for a total of 10 days duration antibiotics including antibiotics given in the hospital. Surgery recommended that she follow-up with her CONSTRUCTION ACCOUNTANT in one week. She was instructed to finish antibiotics to completion and return to the hospital if the lower abdominal swelling, erythema, warmth, pain should worsen. She was alert and oriented times 3 with full capacity and stated a clear understanding of the treatment plan. Discharge discussed with: patient - Time Spent with Patient Total time spent providing and/or coordinating discharge services: Greater than 30 minutes - Discharge Medications Prescriptions: levoFLOXacin [Levaquin] 750 mg PO DAILY #8 tablet Sulfamethoxazole/Trimeth DS [Bactrim DS] 1 each PO BID #16 tablet Tramadol HCl [Ultram] 50 mg PO TID PRN 3 Days #9 tab PRN Reason: Pain Home Medications: ALPRAZolam [Xanax 0.5 MG Tablet] 0.5 mg PO DAILY PRN 07/27/17 [History] Estradiol 2 mg PO DAILY 07/27/17 [History] Fexofenadine HCl 180 mg PO DAILY 07/27/17 [History] Fluticasone Propionate Nasal [Flonase] 1 spr NS DAILY 07/27/17 [History] Ibuprofen 800 mg PO TID PRN 07/27/17 [History] Ondansetron ODT [Zofran ODT] 4 mg PO Q8H PRN 07/27/17 [History] Paroxetine [Paxil] 20 mg PO DAILY 07/27/17 [History] Ranitidine HCl [Acid Winder Hand] 150 mg PO BID 07/27/17 [History] Sulfamethoxazole/Trimeth DS [Bactrim DS] 1 each PO BID #16 tablet 07/29/17 [Rx] Tramadol HCl [Ultram] 50 mg PO TID PRN 3 Days #9 tab 07/29/17 [Rx] levoFLOXacin [Levaquin] 750 mg PO DAILY #8 tablet 07/29/17 [Rx] Allergies/Adverse Reactions: 3 Allergy/AdvReac Type Severity Reaction Status Date / Time Penicillins AdvReac Rash Verified 07/27/17 09:05 Date of admission: 07/27/17 00:38 Primary care physician: Karen Perales CNP Consults: 07/28/17 08:48 Consult to Infectious Diseases [CONS] Routine Consulting Provider: Infectious Disease [place] Reason for Consult: Antibiotic duration. Abdominal infection post oophrectomy. Call Completed: No Discharging clinician: Milton Kirby Anticipated date of discharge: 07/29/17 - Constitutional Vitals: Temp Pulse Resp BP Pulse Ox 98.3 F 64 18 126/77 98 07/29/17 06:57 07/29/17 06:57 07/29/17 06:57 07/29/17 06:57 07/29/17 06:57 Exam: Gen.: Vitals noted. No acute distress. AAOx3 HEENT: oropharynx clear, Normocephalic, atraumatic Cardiac: RRR, no murmur, +S1/S2 Pulmonary: CTA bilaterally, no wheezes, rales or rhonchi, equal chest expansion Abdomen: soft, minimal lower abdominal tender, Bowel sounds noted, no guarding skin: improving erythema and warmth of lower abdomen MSK: ROM intact, no joint swelling noted Extremities: no BLE edema, nontender calf, no cyanosis or clubbing Neuro: A&Ox3, moves all extremities, no focal deficits Psych: Appropriate mood and behavior - Patient Status Disposition: Home, Self-Care Condition: Good Functional capacity at discharge: independent ambulation Overall status at discharge: patient is back to baseline - Discharge Instructions Follow Up With: Karen Perales CNP [Primary Care Provider] - 08/07/17 11:00 am Additional Instructions: Finish both antibiotics to completion take ibuprofen or Tylenol as needed for pain follow-up with your CONSTRUCTION ACCOUNTANT in one week return the hospital should the redness, warmth, swelling should worsen. - Diet and Activity Activity: resume usual activities as tolerated Diet: advance to your usual diet <Milton Kirby - Last Filed: 07/29/17 10:27> Date of Encounter: 07/29/17 - Discharge Diagnosis (1) Abdominal wall cellulitis Status: Acute (2) Obesity Status: Chronic Qualifiers: Obesity type: due to excess calories Obesity classification: unspecified obesity classification Serious obesity comorbidity presence: unspecified whether serious comorbidity present Qualified Code(s): E66.09 - Other obesity due to excess calories (3) Anxiety Status: Chronic (4) History of PCOS Status: Acute (5) GERD (gastroesophageal reflux disease) Status: Acute Qualifiers: Qualified Code(s): K21.9 - Gastro-esophageal reflux disease without esophagitis (6) DVT prophylaxis Status: Acute Hospital course: Ms. Woodruff is a 27 year old female - Time Spent with Patient Total time spent providing and/or coordinating discharge services: Date of admission: 07/27/17 00:38 Primary care physician: Karen Perales CNP Consults: 07/28/17 08:48 Consult to Infectious Diseases [CONS] Routine Consulting Provider: Infectious Disease [place] Reason for Consult: Antibiotic duration. Abdominal infection post oophrectomy. Call Completed: No - Constitutional Vitals: Temp Pulse Resp BP Pulse Ox 98.3 F 64 18 126/77 98 07/29/17 06:57 07/29/17 06:57 07/29/17 06:57 07/29/17 06:57 07/29/17 06:57 - Attending Attestation I performed a history and physical examination of the patient and discussed his/ her management with the resident. I reviewed the residents note and agree with the documented findings and plan of care.
[2017-07-29] MEDS: Loratadine 10 MG TABLET PO SCH (08:35)
[2017-07-29] MEDS: Famotidine 20 MG TABLET PO SCH (08:35)
== END 2017-07-29 09:38 | disposition home or self-care (01) | DRG 383 ==
LOC: 3ANU 18:03 → EMEROO 18:03 → 3ANU 07-27 00:38
PROVIDERS: ADMIT Internal Medicine Cardiovascular Disease; ATTEND Internal Medicine Cardiovascular Disease